=== PATIENT | male | born 1960 | race Caucasian/White ===

== ENCOUNTER → 2016-12-18 | Outpatient (CLI) | payer MEDICARE, MEDICAID ==
[~2016-12-18] MED LIST: CORTISPORI7.5 ML/BO1 OP; DORZOLAMIDE HCL10 ML OP; GABAPENTIN100 M1 PO; METFORMIN 500M500 MG PO; PHENYTOIN 100M100 MG PO
[2016-12-18 15:46] LABS: BUN 14 mg/dL (7-18)
[2016-12-18 15:50] LABS: GFR (ESTIMATED) 88 ML/MIN (>60)
[2016-12-18 16:06] LABS: HEMOGLOBIN 15.3 g/dL (14.1-18.0); LYMPH # 2.9 K/mm3 (0.7-4.5); LYMPH % 37.9 % (10-50)
== END ==
LOC: LAB 15:11
PROVIDERS: Nurse Practitioner Family
DX: E11.9 Type 2 diabetes mellitus without complications (principal)

== ENCOUNTER 2017-02-06 08:46 | Day surgery (SDC) | payer MEDICARE, MEDICAID ==
[~2017-02-06] VITALS: Ht 180.3 cm; Wt 122.9 kg
[2017-02-06 09:03] VITALS: BP 150/87
[2017-02-06 10:31] VITALS: BP 150/87
[2017-02-06 10:32] VITALS: BP 173/94
[2017-02-06 10:39] VITALS: BP 147/94
--- NOTE | 2017-02-06 10:39 | Procedure Note ---
Procedure detail Date of procedure: 02/06/17 Anesthesiologist: Ranjit Baum MD Complications: None Pre-procedure diagnosis: Sacroiliitis Post-procedure diagnosis: Same Indications for procedure: This patient's pleasant 56-year-old white male returns our pain clinic today after his initial consultation on 11/25/2016. Patient has documented lumbar imaging degenerative disc disease levels with multilevel disc bulge. Multilevel lumbar facet arthropathy. Patient has completed 8 weeks of physical therapy. He reports initially physical therapy was helping. However, the last 3 sessions but him in bed for about 1-2 days. Pain in the lumbar back was significant. He describes the pain as constant, dull, aching. His main complaint is RIGHT hip pain. He has extreme point tenderness over the RIGHT SI joint. We discussed lumbar epidural steroid injection versus RIGHT SI joint injection. Patient would like to try RIGHT SI joint injection prior to injections in his back. We will do a RIGHT SI joint injection under fluoroscopy today. Procedure detail: Procedure: Right sacroliliac joint injection under fluoroscopy Informed consent was obtained and the risk and benefits of the procedure were explained to the patient.~ The patient was taken to the procedure room and noninvasive monitors were placed including noninvasive blood pressure cuff and pulse oximeter.~ The patient was placed prone on the procedure table.~ The~ right hip was cleansed using Betadine as a cleansing solution.~ C-arm fluorosocpy was used to view the right SI joint.~ The skin and subcutaneous tissues were anesthetized using Lidocaine 1.5% and a 25-gauge needle.~ After this, a 22-gauge spinal needle was inserted under fluoroscopic guidance into the inferior aspect of the right SI joint.~ Omnipaque dye was injected and a good spread was seen throughout the joint.~ After this, approximately 5 mL of bupivacaine 0.25% and Depo-Medrol 40 mg was incrementally injected into the sacroiliac joint.~ The patient tolerated the procedure well with no complications.~ The patient was observed in the Pain Clinic, then discharged home neurologically intact.~ Plan and disposition: We will follow-up with him in 2 weeks. We'll reevaluate his symptoms at that time. at [id number]
== END 2017-02-06 10:48 | disposition home or self-care (01) ==
LOC: PM 08:46
PROC: 3E0U33Z Introduction of Anti-inflammatory into Joints, Percutaneous Approach (ICD-10-PCS; principal; 2017-02-06)
PROC: 3E0U3BZ Introduction of Anesthetic Agent into Joints, Percutaneous Approach (ICD-10-PCS; 2017-02-06)
DX: M46.1 Sacroiliitis, not elsewhere classified (principal)
CPT/HCPCS: G0260; J1040; Q9966